=== PATIENT | male | born 1985 | race Caucasian/White ===

== ENCOUNTER 2018-10-27 09:49 | Emergency (ER) | payer BC ==
--- NOTE | 2018-10-27 10:21 | ED PDOC ---
Arrival/HPI - General Historian: Patient - History of Present Illness Narrative History of Present Illness (Text): 10/27/18 10:13 CC: Chest Pain HPI: 33 yo male w/ PMH of intermittent chest pain and anxiety comes to ED for evaluation of chest pain. Patient states this chest pain has been on going for 5+ years. Patient states he has been monitored on Holter monitor for 5 days but does not know results. Patient has outpatient stress test scheduled with Dr. Kellogg next month. Patient states the pain feels like a stabbing pain that radiates into his left hand which then becomes numb. Patient states that he has some difficulty with breathing during these episodes. Patient denies family history of cardiac disease. Admits to sob, chest pain, radiation of pain into left hand. Denies fevers, chills, n/v, constipation or diarrhea, and dysuria. Time/Duration: 24 hours Symptom Onset: Sudden Symptom Course: Unchanged, Intermittent Quality: Stabbing Severity Level: 6 Activities at Onset: Rest <Oscar Lerner - Last Filed: 10/27/18 11:43> <Ly Raymundo - Last Filed: 10/27/18 12:01> - General Chief Complaint: Chest Pain Time Seen by Provider: 10/27/18 09:55 Past Medical History - Provider Review Nursing Documentation Reviewed: Yes <Oscar Lerner - Last Filed: 10/27/18 11:43> Family/Social History - Physician Review Nursing Documentation Reviewed: Yes Family/Social History: No Known Family HX Smoking Status: Light Smoker < 10 Cigarettes Daily Hx Alcohol Use: No Hx Substance Use: No <Oscar Lerner - Last Filed: 10/27/18 11:43> Allergies/Home Meds <Oscar Lerner - Last Filed: 10/27/18 11:43> <Ly Raymundo - Last Filed: 10/27/18 12:01> Allergies/Adverse Reactions: Allergies No Known Allergies Allergy (Unverified 10/27/18 10:22) Review of Systems - Review of Systems Constitutional: Normal. absent: Fatigue, Weight Change, Fevers Eyes: Normal. absent: Vision Changes, Photophobia ENT: Normal Respiratory: SOB. absent: Normal, Cough, Sputum, Wheezing Cardiovascular: Chest Pain. absent: Palpitations, Edema, Calf Pain, [place], Syncope Gastrointestinal: Normal. absent: Abdominal Pain, Stool Changes, Constipation, Diarrhea, Nausea, Vomiting Genitourinary Male: Normal. absent: Dysuria, Frequency, Hematuria Musculoskeletal: Normal. absent: Arthralgias, Back Pain, Neck Pain Skin: Normal. absent: Rash, Pruritis, Skin Lesions Neurological: Normal. absent: Headache, Dizziness, Focal Weakness Endocrine: Normal. absent: Diaphoresis, Polyuria, Polydipsia Hemo/Lymphatic: Normal. absent: Adenopathy, Easy Bleeding, Easy Bruising Psychiatric: Anxiety. absent: Normal, Depression <Yann,Madaser - Last Filed: 10/27/18 11:43> Physical Exam Vital Signs Reviewed: Yes Temperature: Afebrile Blood Pressure: Hypotensive Pulse: Regular Respiratory Rate: Normal Appearance: Positive for: Non-Toxic, Uncomfortable Pain Distress: Mild Mental Status: Positive for: Alert and Oriented X 3 - Systems Exam Head: Present: Atraumatic, Normocephalic Pupils: Present: PERRL Extroacular Muscles: Present: EOMI Mouth: Present: Moist Mucous Membranes Neck: Present: Normal Range of Motion. No: Meningeal Signs, JVD Respiratory/Chest: Present: Clear to Auscultation, Good Air Exchange. No: Respiratory Distress, Accessory Muscle Use, Wheezes, Decreased Breath Sounds Cardiovascular: Present: Regular Rate and Rhythm, Normal S1, S2. No: Murmurs, Tachycardic Abdomen: Present: Normal Bowel Sounds. No: Tenderness, Distention, Peritoneal Signs Upper Extremity: Present: Normal Inspection. No: Cyanosis, Edema Lower Extremity: Present: Normal Inspection. No: Edema Neurological: Present: GCS=15, CN II-XII Intact, Speech Normal Skin: Present: Warm, Dry, Normal Color. No: Rashes Psychiatric: Present: Alert, Oriented x 3, Normal Insight, Normal Concentration <Yann,Madaser - Last Filed: 10/27/18 11:43> Vital Signs Temp Pulse Resp BP Pulse Ox 10/27/18 10:22 98.1 F 72 18 106/52 L 96 <Ly Raymundo - Last Filed: 10/27/18 12:01> Medical Decision Making ED Course and Treatment: 10/27/18 10:28 Impression 33 yo male w/ PMH of intermittent chest pain and anxiety comes to ED for evaluation of chest pain. Plan -Cardiac ISO -CBC -CMP -EKG -CXR -D-dimer -Aspirin Prior Visits No prior visits Progress Notes pending lab work 10/27/18 11:43 lab work reviewed, HEART score of 1 Patient has f/u appointment for cardiac stress test next month with Dr. Kellogg 10/27/18 11:46 Re-evaluation Time: 11:44 Reassessment Condition: Re-examined, Improving,but remains with symptoms - Lab Interpretations Lab Results: 10/27/18 10:35 10/27/18 10:35 Lab Results 10/27/18 10:35: Sodium 139, Potassium 4.5, Chloride 106, Carbon Dioxide 27, Anion Gap 10, BUN 11, Creatinine 0.8, Est GFR ( Amer) > 60, Est GFR (Non- Af Amer) > 60, Random Glucose 100, Calcium 8.8, Total Bilirubin 0.6, AST 50, ALT 74 H, Alkaline Phosphatase 42, Lactate Dehydrogenase 456, Total Creatine Kinase 203, Troponin I < 0.01, Total Protein 6.8, Albumin 3.9, Globulin 2.8, Albumin/Globulin Ratio 1.4 10/27/18 10:35: D-Dimer, Quantitative < 200 10/27/18 10:35: WBC 7.4, RBC 4.62, Hgb 13.8 L, Hct 41.2 L, MCV 89.2, MCH 29.9, MCHC 33.5, RDW 12.8, Plt Count 248, MPV 10.3, Neut % (Auto) 60.0, Lymph % (Auto) 31.6, [place] % (Auto) 6.9 H, Eos % (Auto) 1.1 L, Baso % (Auto) 0.4, Lymph # (Auto) 2.4, [place] # (Auto) 0.5, Eos # (Auto) 0.1, Baso # (Auto) 0.03, Absolute Neuts (auto) 4.47 I have reviewed the lab results: Yes Interpretation: All labs normal - EKG Interpretation Interpreted by ED Physician: Yes Type: 12 lead EKG <Oscar Lerner - Last Filed: 10/27/18 11:43> ED Course and Treatment: 10/27/18 10:56 Patient Seen with Resident: In agreement with resident note which contains more details about the patient. Patient seen and evaluated with resident. Came up with plan and treatment together. Patient presenting with intermittent chest pain x years. Appears anxious. No cardiac risk factors. EKG shows NSR at 80bpm with normal intervals and no ST changes. Cxray negative. Trop and d-dimer negative. Has cardiology follow-up for stress test. Previouslad had holter monitor. 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 / has examined the patient and agrees with the treatment plan. <Ly Raymundo - Last Filed: 10/27/18 12:01> Disposition/Present on Arrival - Present on Arrival Any Indicators Present on Arrival: No History of DVT/PE: No History of Uncontrolled Diabetes: No Urinary Catheter: No History of Decub. Ulcer: No - Disposition Have Diagnosis and Disposition been Completed?: Yes Disposition Time: 11:45 Patient Plan: Discharge <Oscar Lerner - Last Filed: 10/27/18 11:43> <Ly Raymundo - Last Filed: 10/27/18 12:01> - Disposition Diagnosis: Intermittent chest pain, Anxiety Disposition: HOME/ ROUTINE Patient Problems: Current Active Problems Problem Status Onset Intermittent chest pain Acute Anxiety Acute Condition: FAIR Discharge Instructions (ExitCare): Chest Pain That Is Not Caused by the Heart (DC), Chest Pain (ED) Additional Instructions: 1. Please f/u primary medical doctor within 3-7 days of discharge from hospital. 2. Please f/u with medical and scientific illustrator Dr. Kellogg for scheduled cardiac stress test next month 3. Please return to hospital if symptoms worsen or recur. Referrals: Rodger Kellogg MD [Staff Provider] - Follow up with primary Forms: [employer] ([place]ali)
[2018-10-27 10:22] VITALS: BMI 26.8
[2018-10-27 10:23] VITALS: RESP 18; TEMP 98.1
[2018-10-27 10:56] LABS: BASO # 0.03 K/mm3 (0.0-2.0); BASO % 0.4 % (0.0-3.0); EOS # 0.1 (0.0-0.7); EOS % 1.1 % (1.5-5.0); HEMOGLOBIN 13.8 g/dL (14.0-18.0); LYMPH # 2.4 (1.2-3.4); LYMPH % 31.6 % (22.0-35.0); MEAN CELL VOLUME 89.2 fl (80.0-105.0); MEAN CORPUSCULAR HEMOGLOBIN 29.9 pg (25.0-35.0); MEAN CORPUSCULAR HGB CONC 33.5 g/dl (31.0-37.0); MEAN PLATELET VOLUME 10.3 fl (7.0-11.0); MONO # 0.5 (0.1-0.6); MONO % 6.9 % (1.0-6.0); RBC 4.62 10^6/uL (3.5-6.1); RED CELL DISTRIBUTION WIDTH 12.8 % (11.5-14.5); WHITE BLOOD COUNT 7.4 10^3/uL (4.5-11.0)
[2018-10-27 11:09] LABS: ALB/GLOB RATIO 1.4 (1.1-1.8); ALBUMIN 3.9 g/dL (3.0-4.8); ALT/SGPT 74 U/L (7-56); AST/SGOT 50 U/L (17-59); BLOOD UREA NITROGEN 11 mg/dL (7-21); CALCIUM 8.8 mg/dL (8.4-10.5); GFR NON-AFRICAN AMERICAN > 60
[2018-10-27 11:20] LABS: TROPONIN I < 0.01 ng/mL
[2018-10-27 12:10] VITALS: BP 110/50; PULSE 70; O2SAT 95
--- NOTE | 2018-10-27 12:35 | RAD ---
Date of service: 10/27/2018 HISTORY: Cough COMPARISON: No prior. TECHNIQUE: 1 view obtained. FINDINGS: LUNGS: No active pulmonary disease. PLEURA: No significant pleural effusion identified, no pneumothorax apparent. CARDIOVASCULAR: No aortic atherosclerotic calcification present. Normal cardiac size. No pulmonary vascular congestion. OSSEOUS STRUCTURES: No significant abnormalities. VISUALIZED UPPER ABDOMEN: Normal. OTHER FINDINGS: None. IMPRESSION: No active disease.
--- NOTE | 2018-10-27 17:40 | CARD ---
APPROVED REPORT Date of service: 10/27/2018 EKG Measurement Heart [id number] <Conclusion> Normal sinus rhythm Normal ECG
== END 2018-10-27 12:18 | disposition home or self-care (01) ==
LOC: ED 09:49
DX: R07.9 Chest pain, unspecified (principal); F41.9 Anxiety disorder, unspecified